=== PATIENT | female | born 1990 | race Two or more races ===

== ENCOUNTER 2022-07-16 16:51 | Inpatient (IN) | payer BC ==
[~2022-07-16] VITALS: Ht 172.7 cm; Wt 124.3 kg
[2022-07-16 17:43] LABS: HEMOGLOBIN 13.5 gm/dl (12.3-15.3); RED BLOOD COUNT 4.28 M/UL (4.00-5.10); WHITE BLOOD COUNT 10.7 K/UL (4.5-11.0)
[2022-07-17] MEDS ORDERED: COLACE 100MG C100 MG PO (12:40)
[2022-07-17] MEDS ORDERED: IBUPROFEN600 MG PO (12:40)
[2022-07-17] MEDS ORDERED: HYDROCODON-ACE1 EAC6 PO (12:40)
[2022-07-19] MEDS ORDERED: COLACE 100MG C100 MG PO (09:34)
[2022-07-19] MEDS ORDERED: IBUPROFEN600 MG PO (09:34)
[2022-07-19] MEDS ORDERED: HYDROCODON-ACE1 EAC6 PO (09:34)
== END 2022-07-19 14:53 | disposition home or self-care (01) | DRG 788 ==
LOC: GENOP 16:51 → CDU 17:04 → OB 17:04
PROVIDERS: ADMIT Obstetrics & Gynecology
PROC: 10D00Z1 Extraction of Products of Conception, Low, Open Approach (ICD-10-PCS; principal; 2022-07-17 13:02)
DX: O80 Encounter for full-term uncomplicated delivery (principal); Z37.0 Single live birth; Z3A.39 39 weeks gestation of pregnancy; Z98.84 Bariatric surgery status; Z82.49 Family history of ischemic heart disease and other diseases of the circulatory system; Z80.3 Family history of malignant neoplasm of breast; Z83.3 Family history of diabetes mellitus
CPT/HCPCS: 36415; 82800; 85014; 85018; 85025; 85461; 86850; 86900; 86901; C9113; G0378; J0690; J1170; J1650; J1885; J2210; J2274; J2370; J2405; J2590; J2790; J3010